=== PATIENT | male | born 1995 | race Caucasian/White ===

== ENCOUNTER 2017-03-23 04:01 | Emergency (ER) | payer MEDICAID ==
[2017-03-23] MEDS: DIPHTH/TET/ACEL PERTUSS (ADULT) 0.5 ML VIAL IM* (04:57)
[2017-03-23] MEDS: traMADol 50 MG TAB PO (05:16)
== END 2017-03-23 05:40 | disposition home or self-care (01) ==
LOC: FTE 04:01
DX: S01.01XA Laceration without foreign body of scalp, initial encounter (principal); J32.0 Chronic maxillary sinusitis; Y08.89XA Assault by other specified means, initial encounter; Z23 Encounter for immunization; Z87.891 Personal history of nicotine dependence
CPT/HCPCS: 70450; 70486; 90471; 99285-25